=== PATIENT | male | born 1955 | race American Indian/Alaskan Native ===

== ENCOUNTER 2022-06-01 08:17 | Emergency (ER) | payer MEDICARE ==
[2022-06-01 09:12] LABS: Basophils % (Auto) 0.6 % (0.0-1.8); Eosinophils # (Auto) 0.1 K/mm3 (0.0-0.4); Eosinophils % (Auto) 2.1 % (0.0-4.3); Hemoglobin 13.8 gm/dl (11.8-15.2); Lymphocytes # (Auto) 1.3 K/mm3 (1.2-5.4); Mean Corpuscular HGB Conc 34 % (32-34); Mean Corpuscular Volume 95 fl (84-94); Monocytes # (Auto) 0.5 K/mm3 (0.0-0.8); Monocytes % (Auto) 7.2 % (0.0-7.3); Platelet Count 203 K/mm3 (140-440); Red Cell Distribution Width 14.2 % (13.2-15.2)
[2022-06-01 09:22] LABS: BUN/Creatinine Ratio 21; Blood Urea Nitrogen 19 mg/dL (9-20); Calcium 9.3 mg/dL (8.4-10.2); Hemolysis Index 26
[2022-06-01 10:18] LABS: Color,Urine Straw (Yellow)
[2022-06-01 10:19] LABS: RBC,Urine < 1.0 /HPF (0.0-6.0)
[2022-06-01 10:22] LABS: Amphetamine Screen,Urine Negative; Benzodiazepines Screen,Urine Negative; Cannabinoid Screen,Urine Negative; Cocaine Screen,Urine Negative; Methadone Screen,Urine Negative; Opiate Screen,Urine Negative
--- NOTE | 2022-06-01 14:26 | Emergency Department Report ---
ED Psych HPI - General Chief Complaint: Medical Clearance Stated Complaint: EVAL Time Seen by Provider: 06/01/22 08:28 Source: patient Mode of arrival: Ambulatory - History of Present Illness Initial Comments: I DON'T KNOW WHY I'M HERE. I WAS IN [facility] AND THEY SENT ME TO [facility] AND THEY SENT ME HERE." DENIES HI/SI/. DENIES HEARING VOICES MD Complaint: other -: unknown Associated Psychiatric Symptoms: none History of same: No Quality: constant Improves With: none Worsens With: none - Related Data Allergies Allergy/AdvReac Type Severity Reaction Status Date / Time No Known Allergies Allergy Unverified 06/01/22 08:19 ED Review of Systems ROS: Stated complaint: EVAL Other details as noted in HPI Constitutional: denies: chills, fever Eyes: denies: eye pain, eye discharge, vision change ENT: denies: ear pain, throat pain Respiratory: denies: cough, shortness of breath, wheezing Cardiovascular: denies: chest pain, palpitations Endocrine: no symptoms reported Gastrointestinal: denies: abdominal pain, nausea, diarrhea Genitourinary: denies: urgency, dysuria Musculoskeletal: denies: back pain, joint swelling, arthralgia Skin: denies: rash, lesions Neurological: denies: headache, weakness, paresthesias Psychiatric: denies: anxiety, depression Hematological/Lymphatic: denies: easy bleeding, easy bruising ED Past Medical Hx - Past Medical History Previous Medical History?: No Hx Hypertension: No Hx CVA: No Hx Psychiatric Treatment: Yes (SCHIZOPHRENIA) - Surgical History Past Surgical History?: No ED Physical Exam - General Limitations: No Limitations General appearance: alert, in no apparent distress - Head Head exam: Present: atraumatic, normocephalic - Eye Eye exam: Present: normal appearance - ENT ENT exam: Present: mucous membranes moist - Neck Neck exam: Present: normal inspection - Respiratory Respiratory exam: Present: normal lung sounds bilaterally. Absent: respiratory distress - Cardiovascular Cardiovascular Exam: Present: regular rate, normal rhythm. Absent: systolic murmur, diastolic murmur, rubs, gallop - GI/Abdominal GI/Abdominal exam: Present: soft, normal bowel sounds - Rectal Rectal exam: Present: deferred - Extremities Exam Extremities exam: Present: normal inspection - Back Exam Back exam: Present: normal inspection - Neurological Exam Neurological exam: Present: alert, oriented X3 - Psychiatric Psychiatric exam: Present: normal affect, normal mood - Skin Skin exam: Present: warm, dry, intact, normal color. Absent: rash ED Course Vital Signs 06/01/22 08:20 Temperature 97.9 F Pulse Rate 85 Respiratory 18 Rate Blood Pressure 156/100 O2 Sat by Pulse 99 Oximetry ED Medical Decision Making - Lab Data Result diagrams: 06/01/22 08:46 06/01/22 08:46 Critical care attestation.: If time is entered above; I have spent that time in minutes in the direct care of this critically ill patient, excluding procedure time. ED Disposition Clinical Impression: Schizophrenia Disposition: HOME / SELF CARE / HOMELESS Is pt being admited?: No Does the pt Need Aspirin: No Condition: Stable Instructions: Schizophrenia Additional Instructions: Professional and Agency Contacts To help [facility] (07/04) [place] Crisis Line: Suicide Prevention Line: Crisis Text Line: Text START to 943909 Emergency: 911 Outpatient COMMUNITY Behavioral Health Resources: [facility]: [facility] [address] [place], [place] [address] [facility] [address] [place] [address] Friday thru Friday - 8am - 5pm Call to schedule an assessment for mental health and substance abuse programs [facility] Address: [address] [place], [place] [address]Friday thru Friday- 7am-2pm [facility] Address: [address] [place] [address] Friday thru Friday: 8:30AM-5PM OUTPATIENT MENTAL HEALTH RESOURCES [facility], [facility] Michela Briseno MD: [address] [place] [address] [place] [address] [facility] [address] [place] [address] [place] [address] [phone] Je[facility]: [facility]: [address] [facility] [address] [place] [address] [facility] [address] [facility]: Sean Portillo MD: [id number] [facility] [address] [facility] [address] [facility]: [address] [place] [address] [phone] [place] CRISIS AND ACCESS LINE: Referrals: DEVON GIRARD MD [Primary Care Provider] - 3-5 Days
--- NOTE | 2022-06-01 15:28 | Consultation ---
History of Present Illness - Reason for Consult Consult date: 06/01/22 Reason for consult: mental health evaluation - Chief Complaint Chief complaint: "I don't know why I'm here," - History of Present Psychiatric Illness Patient is a 67 year-old male with psychiatric history of schizophrenia who presents to ER ambulatory. Patient was seen today. Patient was alert and oriented x3 and cooperative throughout the interview. His responses were circumstantial with disorganized thinking. Patient reports being seen at [facility] yesterday, and staff there "suggested I just go to the hospital to find out what kind of help I need." Patient reports being homeless for the last month after losing his job. Patient unable to explain events leading up to why he lost his job. Patient denies SI but reports he has made decisions "that to the outside observer might look like that." Patient reports getting shocked from his pacemaker, sitting down on side of the road and waving to [employer] for help earlier this year. Patient reports pawning his phone yesterday and not understanding why he did that afterwards. Patient reports difficulty judging the consequences of his actions. Patient denies ever having hallucinations, denies HI. Patient reports he tapered off zyprexa 2 years ago with an outpatient provider. PAST PSYCHIATRIC HISTORY: Diagnoses: Schizophrenia Suicide attempts or Self-harm behavior: Denies Prior psychiatric hospitalizations: Denies Substance Abuse history: Denies Previous psychiatric medications tried: Zyprexa low dose Outpatient treatment: Yes PAST MEDICAL HISTORY: None reported Family Psychiatric History: None reported or documented SOCIAL HISTORY Marital Status: Single Living Arrangements: Homeless Employment Status: Unemployed Access to guns/weapons: Denies Education: Some college History of Abuse: Denies Legal History: Denies REVIEW OF SYSTEMS Constitutional: Negative for weight loss ENT: Negative for stridor Respiratory: Negative for cough or hemoptysis All other systems reviewed and are negative MENTAL STATUS EXAMINATION General Appearance and Behavior: Age appropriate, wearing appropriate clothes, cooperative, polite with questioning, good eye contact Cooperation: cooperative Psychomotor Behavior: Psychomotor normal Mood: calm Affect and affective range: congruent with stated mood Thought Process: circumstantial Thought Content: reality-based Speech: Normal volume, Regular rate and rhythm Suicidal Ideation: Denies Homicidal Ideation: Denies Hallucination: Denies Delusions: Denies Impulse Control: Fair Insight and Judgment: Poor Memory: Normal Attention: Attentive Orientation: Alert and oriented ASSESSMENT Schizophrenia TREATMENT PLAN Start abilify 5 mg qd Risks, benefits and alternatives of medications discussed with the patient, questions answered and consent obtained from patient. PSYCHOTHERAPY: Supportive psychotherapy provided MEDICAL: Per primary team DELIRIUM PRECAUTIONS: Please re-orient patient frequently, keep lights on during the day, and minimize benzodiazepines and opiates as these medications could worsen patient's confusion. CHIEF DESIGN BRANCH: Defer to primary DISPOSITION: Recommend acute inpatient psychiatric hospitalization at this time. FOLLOW-UP: Will follow Thank you for the consult. Please contact with any questions and/or concerns. Case staffed with Dr. Arsen Cevallos. Medications and Allergies Allergies Allergy/AdvReac Type Severity Reaction Status Date / Time No Known Allergies Allergy Unverified 06/01/22 08:19 Home Medications Medication Instructions Recorded Confirmed Last Taken Type Sotalol HCl [Sotalol] 80 mg PO BID 06/01/22 06/01/22 Unknown History Mental Status Exam - Vital signs Last Vital Signs Temp 97.9 F 06/01/22 08:20 Pulse 85 06/01/22 08:20 Resp 18 06/01/22 08:20 BP 156/100 06/01/22 08:20 Pulse Ox 99 06/01/22 08:20 Results Result Diagrams: 06/01/22 08:46 06/01/22 08:46 Abnormal lab results 06/01/22 06/01/22 06/01/22 Range/Units 08:46 08:46 08:46 MCV 95 H (84-94) fl Salicylates < 0.3 L (2.8-20.0) mg/dL Acetaminophen 5.0 L (10.0-30.0) ug/mL All other labs normal. Assessment and Plan Assessment and plan: schizophrenia - restart olanzapine 2.5 mg qhs - recommend inpatient treatment
--- NOTE | 2022-06-01 16:57 | Emergency Department Report ---
Blank Doc - Documentation Documentation: 67-year-old male currently 67-year-old male with recommendation for inpatient psychiatric treatment. I discussed case with psychiatric perfusionist. BP medication will be started if patient is persistently hypertensive. Patient will be discharged to be admitted to [facility] psych
[2022-06-01] MEDS ORDERED: NON-FORMULARY EACH (Sotalol Hcl [Sotalol] 120 MG Tablet) PO SCH (22:00)
--- NOTE | 2022-06-02 15:39 | Progress Note ---
Subjective - Reason for Consult Consult date: 06/02/22 Reason for consult: mental health evaluation - Chief Complaint Chief complaint: "I don't know why I'm here," 06/02: Patient seen today. Patient was alert, oriented x3, cooperative and pleasant throughout the interview. His responses were circumstantial with disorganized thinking. When asked how patient felt about being admitted, patient responded "I pleaded to the lord who lead me here, I prayed before I came here. I believe this is the way forward for me." Patient reports good mood, good appetite, and good sleep at this time. Patient denies SI HI AVH. 06/01: Patient is a 67 year-old male with psychiatric history of schizophrenia who presents to ER ambulatory. Patient was seen today. Patient was alert and oriented x3 and cooperative throughout the interview. His responses were circumstantial with disorganized thinking. Patient reports being seen at [facility] yesterday, and staff there "suggested I just go to the hospital to find out what kind of help I need." Patient reports being homeless for the last month after losing his job. Patient unable to explain events leading up to why he lost his job. Patient denies SI but reports he has made decisions "that to the outside observer might look like that." Patient reports getting shocked from his pacemaker, sitting down on side of the road and waving to [employer] for help earlier this year. Patient reports pawning his phone yesterday and not understanding why he did that afterwards. Patient reports difficulty judging the consequences of his actions. Patient denies ever having hallucinations, denies HI. Patient reports he tapered off zyprexa 2 years ago with an outpatient provider. MENTAL STATUS EXAMINATION General Appearance and Behavior: Age appropriate, wearing appropriate clothes, cooperative, polite with questioning, good eye contact Cooperation: cooperative Psychomotor Behavior: Psychomotor normal Mood: calm Affect and affective range: congruent with stated mood Thought Process: circumstantial, disorganized Thought Content: reality-based Speech: Normal volume, Regular rate and rhythm Suicidal Ideation: Denies Homicidal Ideation: Denies Hallucination: Denies Delusions: Denies Impulse Control: Fair Insight and Judgment: Poor Memory: Normal Attention: Attentive Orientation: Alert and oriented ASSESSMENT Schizophrenia TREATMENT PLAN -Start abilify 5 mg qd -Admit to [facility] floor Risks, benefits and alternatives of medications discussed with the patient, questions answered and consent obtained from patient. PSYCHOTHERAPY: Supportive psychotherapy provided MEDICAL: Per primary team DELIRIUM PRECAUTIONS: Please re-orient patient frequently, keep lights on during the day, and minimize benzodiazepines and opiates as these medications could worsen patient's confusion. GUIDE ALPINE: Defer to primary DISPOSITION: Recommend acute inpatient psychiatric hospitalization at this time. FOLLOW-UP: Will follow Thank you for the consult. Please contact with any questions and/or concerns. Case staffed with Dr. Arsen Cevallos. Mental Status Exam - Vital signs Last Vital Signs Temp 97.9 F 06/01/22 08:20 Pulse 88 06/02/22 09:10 Resp 18 06/01/22 17:10 BP 132/84 06/02/22 09:10 Pulse Ox 100 06/01/22 17:10
[2022-06-02] MEDS ORDERED: ARIPiprazole 5 MG TAB PO SCH (17:00)
[2022-06-03 08:44] VITALS: BP 125/66
== END 2022-06-03 14:09 | disposition home or self-care (01) ==
LOC: ED 08:17
DX: F20.9 Schizophrenia, unspecified (principal); Z20.822 Contact with and (suspected) exposure to COVID-19; Z79.899 Other long term (current) drug therapy
CPT/HCPCS: 36415; 80048; 80307; 81001; 85025; 99284; U0003; 80320; G0480